=== PATIENT | male | born 1945 | race Caucasian/White ===

== ENCOUNTER → 2018-02-19 | Outpatient (CLI) | payer MEDICARE, OTHER ==
[~2018-02-19] MED LIST: LISINOPRIL20 MG PO; MIRAPEX0.75 MG PO; PRIL40; SINEMET 25-1001 TAB PO
== END ==
LOC: COL.RAD 09:15
DX: M25.562 Pain in left knee (principal)
CPT/HCPCS: A9503

== ENCOUNTER → 2018-05-02 | Outpatient (CLI) | payer MEDICARE, OTHER | LOC: COL.LAB 10:02 | DX: Z96.652 Presence of left artificial knee joint (principal) ==

== ENCOUNTER 2019-02-13 11:48 | Day surgery (SDC) | payer MEDICARE, OTHER ==
[~2019-02-13] VITALS: Ht 174 cm; Wt 80.0 kg
[2019-02-13] VITALS (10 sets, daily range): BP systolic 103–167; BP diastolic 59–88; PULSE 65–95; TEMP 97.4–98.4
--- NOTE | 2019-02-13 12:53 | NUR ---
REVIEWED MEDS WITH PATIENT AND HE STATED HE HAS NOT TAKEN ANY MEDS FOR PAST COUPLE MONTHS.
--- NOTE | 2019-02-13 12:55 | NUR ---
TO RM 6 AT 1210- CALL LIGHT IN REACH NO WITH PATIENT AT THIS TIME. HE DID PROVIDE A # OF FRIEND FOR RIDE HOME
--- NOTE | 2019-02-13 16:56 | NUR ---
Patient up from OR, alert and oriented x 3. Shift assessment complete. Gamez to dependent drainage with CBI infusing at a slow rate to maintain urine pink. Post op VSS. Fluids infusing per orders to left wrist IV. Patient oriented to room. Denies further needs at this time.
--- NOTE | 2019-02-13 17:00 | NUR ---
Attempted to complete medrx, patient states he is not taking any medications at this time. Stopped taking medications about a week ago.
--- NOTE | 2019-02-13 18:33 | NUR ---
Patient has done well this afternoon, CBI continues to infuse at a slow rate. Urine remains light pink in color. Post op VSS. Denies further needs at this time. Will report off to television anchor.
--- NOTE | 2019-02-13 19:30 | NUR ---
Pt. laying in bed. Pt. is A&OX3, assessment complete. INT to lt. hand patent. CBI running at a slow to moderate rate at this time. Urine is pink no clots noted. Pt. denies pain or other needs, call light within reach.
[2019-02-14 04:00] VITALS: BP 121/68; PULSE 72; TEMP 98.2
[2019-02-14 07:57] VITALS: BP 118/55; PULSE 72; TEMP 97.9
--- NOTE | 2019-02-14 08:00 | NUR ---
PATIENT IS SITTING UP IN BED THIS MORNING UPON ENTRY TO THE ROOM. PATIENT STATES THAT HE WAS UNABLE TO FIND THE URINAL AND HAD AN ACCIDENT. PATIENT LINENS CHANGED AND PATIENT GAVE SELF A BED BATH. PATIENT IS A&OX4. VSS. HEART MURMUR NOTED. BOWEL SOUDS ACTIVE ALL FOUR QUADRANTS. PATIENT TOLERATING DIET WITHOUT ANY COMPLAINTS OF N/V. POSITIVE PEDAL PULSES EQUAL BILATERALLY. INT TO LEFT HAND. CALL LIGHT AND URINAL WITHIN REACH. 2 OF 6 CUPS COMPLETED PLUS INCONTINENT VOID. PATIENT ENCOURAGE TO PUSH PO FLUIDS. PATIENT DENIES ANY NEEDS AT THIS TIME. WILL CONTINUE TO MONITOR.
--- NOTE | 2019-02-14 10:13 | NUR ---
Initial visit; Patient thanked Movie Machine Operator for looking in on him and offering God's blesssings.
--- NOTE | 2019-02-14 11:21 | NUR ---
PATIENT DENIES PAIN AT THIS TIME. 3 OF 6 CUPS COMPLETED. 1 INCONTINENT VOID. PATIENT ENCOURAGED TO DRINK FLUIDS. PATIENT DENIES ANY NEEDS AT THIS TIME.
[2019-02-14 11:26] VITALS: BP 117/51; PULSE 68; TEMP 97.6
--- NOTE | 2019-02-14 12:50 | NUR ---
PATIENTS LEFT WRIST INT DISCONTINUED PER PENDING DISCHARGE. TIP INTACT. PATIENT TOLERATED WELL. PATIENT WAIT ON RIDE FOR DISCHARGE.
--- NOTE | 2019-02-14 12:56 | NUR ---
DR. TRAN CALLED AND UPDATED ON PATIENTS 6 CUP ROUTINE. PATIENT COMPLETED 6 CUP ROUTINE. NO MORE CLOTS SEEN IN CUPS 2-6. TORB TO DISCHARGE PATIENT TO HOME TODAY FROM DR. TRAN TO THIS NURSE.
--- NOTE | 2019-02-14 13:07 | NUR ---
Tobacco Grower met with the patient to complete initial intake and discuss discharge planning. Patient lives alone in [place] and sees Dr. Boo Avila for primary care. Patient obtains prescriptions from [facility] with no difficulty. Patient reports independence with ADLS and does not have any DME. Patient states he has [facility]PO[facility] at [facility] in [place]. Patient plans to return home upon discharge and states he has a friend picking him up to take him home.
--- NOTE | 2019-02-14 14:28 | NUR ---
DISCHARGE INSTRUCTIONS REVIEWED WITH PATIENT. ALL QUESTIONS ANSWERED. PATIENT PERSONAL BELONGINGS GATHERED. PATIENT AMBULATED TO PERSONAL VEHICLE WITH SURGICAL STAFF. PATIENT DISCHARGED.
== END 2019-02-14 14:28 | disposition home or self-care (01) ==
LOC: SDCO 11:48 → SURG 15:46 → SDCO 15:46 → SURG 16:09 → SDCO 02-14 14:28 → SURG 02-14 14:28
DX: N40.1 Benign prostatic hyperplasia with lower urinary tract symptoms (principal); N13.8 Other obstructive and reflux uropathy; R35.0 Frequency of micturition; R35.1 Nocturia; R39.15 Urgency of urination; R39.12 Poor urinary stream; I10 Essential (primary) hypertension; K21.9 Gastro-esophageal reflux disease without esophagitis; G20 Parkinson's disease; G70.9 Myoneural disorder, unspecified; Z96.653 Presence of artificial knee joint, bilateral; Z79.899 Other long term (current) drug therapy; G25.0 Essential tremor; K90.41 Non-celiac gluten sensitivity
CPT/HCPCS: OP; J0360; J0690; J2405; J2704; J3010; J7120